=== PATIENT | male | born 1960 | race Caucasian/White ===

== ENCOUNTER → 2024-04-28 | Day surgery (SDC) | payer MEDICARE, OTHER ==
[~2024-04-28] MED LIST: COREG6.25 MG PO; DONEPEZIL HCL10 MG PO; FLOMAX0.4 MG PO; GLYCOPYRROLATE INJ 0.2 MG/ML VIAL ONE; HYOSCYAMINE SULFATE 0.5 MG/ML INJ ONE; LIDOCAINE HCL 2% LOCAL INJ 5 ML SDV VIAL INJ ONE; METOCLOPRAMIDE HCL 10 MG/2ML VIAL ONE; PROPOFOL IV EMULSION 10 MG/ML 20 ML VIAL ONE; PROPOFOL IV EMULSION 10 MG/ML 50 ML VIAL IV ONE; PROZAC20 MG PO; QUETIAPINE FUMA25 MG PO; TRAZODONE HCL100 MG PO
[2024-04-28] MEDS: LACTATED RINGER'S 1,000 ML ONE (11:11)
[2024-04-28 14:35] VITALS: BP 132/78; PULSE 70; RESP 16; O2SAT 97
[2024-05-03 07:19] LABS: ENDOMYSIAL ANTIBODIES, IGA Negative (Negative)
[2024-05-03 08:45] LABS: IMMUNOGLOBULIN A 368 mg/dL (61-437); TISSUE TRANSGLUTAMINASE IGA AB 3 U/mL (0-3)
== END | disposition home or self-care (01) ==
LOC: OR 10:52
PROVIDERS: ATTEND Internal Medicine Gastroenterology
DX: K90.0 Celiac disease (principal); D12.0 Benign neoplasm of cecum; D12.2 Benign neoplasm of ascending colon; D12.3 Benign neoplasm of transverse colon; D12.5 Benign neoplasm of sigmoid colon; K62.1 Rectal polyp; K31.7 Polyp of stomach and duodenum; K29.70 Gastritis, unspecified, without bleeding; K29.80 Duodenitis without bleeding; K22.89 Other specified disease of esophagus; Q40.8 Other specified congenital malformations of upper alimentary tract; K44.9 Diaphragmatic hernia without obstruction or gangrene; R19.5 Other fecal abnormalities; K57.30 Diverticulosis of large intestine without perforation or abscess without bleeding; K64.8 Other hemorrhoids; Z71.3 Dietary counseling and surveillance; R63.4 Abnormal weight loss; G80.9 Cerebral palsy, unspecified; I10 Essential (primary) hypertension; N40.0 Benign prostatic hyperplasia without lower urinary tract symptoms; Z01.810 Encounter for preprocedural cardiovascular examination; Z79.899 Other long term (current) drug therapy; Z68.25 Body mass index [BMI] 25.0-25.9, adult
CPT/HCPCS: 43239; 45385; 82784; 83516; 86256; 88305; 88313; 88342; 93005; J1980; J2001; J2470; J2704 ×2; J2765; J7121; 45378